=== PATIENT | male | born 1960 | race Hispanic/Latino ===

== ENCOUNTER 2016-07-21 08:22 | Day surgery (SDC) | payer OTHER ==
[~2016-07-21 08:22] MED LIST: MYDRIACYL 1% OD SCH; NACL 0.9% IR ONE; TETRACAINE 0.5% OD PRN; WATER FOR IRRIG STERILE IR ONE
[2016-07-21] MEDS ORDERED: MYDRIACYL 1% ONE (08:50)
[2016-07-21] MEDS: NON-FORMULARY OP SCH ×3 (09:45→09:55)
[2016-07-21] MEDS: VIGAMOX OD SCH ×3 (09:45→09:55)
[2016-07-21] MEDS: AK-Dilate OD SCH ×3 (09:45→09:55)
--- NOTE | 2016-07-21 09:55 | Anesthesia Consultation ---
Anesthesia Consult and Med Hx Date of service: 07/21/16 - Airway Anesthetic Teeth Evaluation: Good ROM Head & Neck: Adequate Mental/Hyoid Distance: Adequate Mallampati Class: Class II Intubation Access Assessment: Probably Good - Pulmonary Exam CTA: Yes - Cardiac Exam Cardiac Exam: RRR - Pre-Operative Health Status ASA Pre-Surgery Classification: ASA2 Proposed Anesthetic Plan: MAC - Pulmonary Hx Smoking: Yes - Central Nervous System Hx Psychiatric Problems: No - Other Systems Hx Alcohol Use: Yes (whiskey daily) Hx Cancer: No
--- NOTE | 2016-07-21 09:56 | Anesthesia Day of Surgery ---
Anesthesia Day of Surgery - Day of Surgery Patient Examined: Yes Patient H&P Reviewed: Yes Patient is NPO: Yes
[2016-07-21] MEDS ORDERED: VERSED ONE (10:39)
[2016-07-21] MEDS ORDERED: SUBLIMAZE ONE (10:39)
[2016-07-21] MEDS ORDERED: DIPRIVAN 10 MG/ML IV ONE ×3 (11:13→11:49)
[2016-07-21] MEDS ORDERED: MIOSTAT OD ONE (11:15)
[2016-07-21] MEDS ORDERED: VISION BLUE IO ONE (11:15)
[2016-07-21] MEDS ORDERED: KENALOG-40 INTRAOCULA ONE (11:15)
[2016-07-21] MEDS ORDERED: XYLOCAINE MPF 1% INFILTRATI ONE (11:15)
[2016-07-21] MEDS ORDERED: VISCOAT IO ONE (11:15)
[2016-07-21] MEDS ORDERED: XYLOCAINE MPF 2% ONE ×2 (11:16)
--- NOTE | 2016-07-21 12:52 | Operative Report ---
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 ANESTHESIA: Monitored anesthesia care in combination with topical and intracameral anesthesia because of the established specific risk of reflux, arrhythmias, or anxiety attacks associated with ocular manipulation, as well as the difficulty of the structural steel erector to manage such potentially catastrophic events while simultaneously attempting to complete the surgical procedure and was deemed necessary for the patient's safety to have a Nurse Fire Protection Fabricator present during the procedure whenever possible. An Fire Protection Fabricator was utilized to regulate the intravenous sedation of the patient so the patient was cooperative yet not asleep in order for the patient to successfully maintain fixation of the eye on the operating light of the microscope. COMPLICATIONS: none . No blood loss. ALLERGIES: No known drug allergies PROGNOSIS: guarded INDICATIONS FOR SURGERY: The patient is undergoing surgery in the hopes of eliminating or improving these visual difficulties. PROCEDURE: After arriving at the surgery center, the patient was given topical anesthetic and dilating drops, as noted in the record. The patient was then taken into the operating room and given more anesthetic drops. The eyelids , lashes, and lid margins were scrubbed with Betadine solution, and the patient was draped. The Fire Protection Fabricator administered IV sedation and monitored the patient during the procedure. A speculum was placed between the eyelids, and the patient was asked to fixate on the light of the microscope. The eye was then fixated with a round luque, which would damage the conjunctival tissues or vessel, and a stab incision was made in the peripheral clear cornea into the anterior chamber. This was made on my left side. Next through this incision, 1% nonpreserved Xylocaine was irrigated in to the eye to provide further anesthesia. Viscoelastic was next used to fill the anterior chamber. The eye was once again fixated with the round luque and a keratome was used make an incision in clear cornea peripherally on my right hand side temporally. When the viscoelastic was injected as noted above, instead of using one cohesive viscoelastic, a special viscoelastic system was used to fill the anterior chamber. The patient has endothelial corneal dystrophy, which is a weakening of the endothelium. Viscoat was first injected into the anterior chamber coating the posterior surface of the cornea. Provisc was then injected between the anterior capsule and the Viscoat. This pushed the Viscoat completely against the endothelium and into the angular area. The Provisc will come out as the phacoemulsification starts, but the Viscoat will remain in place during the procedure to protect the endothelium and the cornea. Due to a small pupil size, it was deemed necessary to dilate the pupil mechanically so that the surgery could be more safely and effectively carried out. This was done using Sinkey and Kruglin hooks. The pupil remain small and a Malugyan ring 6.25 was inserted. Because of the nature of the cataract and poor visualization of the anterior capsule, it was decided that a dye should be used to stain the capsule for better visualization of the capsule during the capsulorrhexis. After the Xylocaine was injected into the eye and prior to placing viscoelastic into the eye, air was injected through the stab incision and used to fill the anterior chamber. Then a cannula was inserted into the stab incision and VisionBlue dye was irrigated over the anterior capsule of the natural lens allowing the entire anterior lens capsule to be coated with the dye. The viscoelastic was next place in the eye as noted above and as this was done, the air was pushed out through the stab incision. The capsule remained colored from the dye and this allowed good visualization of the capsule tear as it progressed. Hydrodissection was carried out utilizing a U-shaped cannula and balanced salt solution to delineate the cortical material from the capsule and the nucleus from the cortical material. The phaco tip was introduced into the eye and used to remove the anterior cortical material in the area of the capsulotomy. Then the phaco tip was buried into the nucleus, and a chopping instrument was introduced into the eye and used to provide countertraction in the nucleus between this instrument and the phaco tip fracturing the nucleus. This procedure was repeated multiple times, providing multiple small segments of the lens, and then the phaco tip was used to remove each of these segments. Because of the cataract density we had to increase phaco setting to a grade 4. An I/A tip was then used to remove the remaining cortex. Capsular rent was noted and the bag appear slighly unstable so decided to place a sulcus lens. It was decided that instead of placing the lens in the capsular bag, the lens would be placed into the eye with the haptics anterior to the capsular bag and in the ciliary sulcus. Once it was determined that both haptics were properly positioned, the lens optic was pushed posteriorly to allow capture of the optic by the anterior capsulotomy. This capture provides better fixation and centration of the lens than placement in the sulcus alone. In order to provide constriction of the pupil and improved vision, Carbachol was injected into the anterior chamber to constrict the pupil. MEDICATIONS APPLIED AT END OF SURGERY: Kenolog was injected in the AC and subconj. The patient was given a shield to wear at night and was instructed not to rub or push on the eye. DISCHARGE SUMMARY: The patient was released in stable condition. The patient and those with the patient were given a written sheet of postoperative instructions and counseling on any abnormal laboratory studies. The patient is to see us tomorrow for follow-up in the office and is to call immediately for any difficulties. Jamilah Velazquez M.D. Date
--- NOTE | 2016-07-21 12:53 | Short Stay Summary ---
Short Stay Documentation Date of service: 07/21/16 - History H&P: obtained from office - Allergies and Medications Current Medications: Allergies Penicillins Allergy (Verified 07/19/16 08:33) Rash Home Medications Medication Instructions Recorded Confirmed Last Taken Type Difluprednate [Durezol 0.05%] 1 drop OS QID 07/19/16 07/19/16 Unknown History Nepafenac [Ilevro 0.3%] 1 drop OS DAILY 07/19/16 07/21/16 07/20/16 History Active Medications Miscellaneous Medication (Non-Formulary) 1 each OP Q5MIN DARRON Stop: 07/21/16 16:00 Last Admin: 07/21/16 09:55 Dose: 1 each Moxifloxacin HCl (Vigamox) 1 drops OD Q5MIN DARRON Stop: 07/21/16 18:01 Last Admin: 07/21/16 09:55 Dose: 1 drops Phenylephrine HCl (Ak-Dilate) 1 drops OD Q5MIN DARRON Stop: 07/21/16 18:01 Last Admin: 07/21/16 09:55 Dose: 1 drops Prednisolone Acetate (Pred Forte 1%) 1 drops OD QID DARRON Last Admin: 07/21/16 12:32 Dose: 1 drops Tetracaine HCl (Tetracaine 0.5%) 1 drops OD Q5M PRN PRN Reason: Analgesia Stop: 07/21/16 18:01 Last Admin: 07/21/16 09:45 Dose: 1 drops - Brief post op/procedure progress note Date of procedure: 07/21/16 Pre-op diagnosis: white uveitc cataract and post synechae right eye Post-op diagnosis: same Procedure: Phacoemulsification with intraocular lens insertion Kenalog injection right eye Anesthesia: MAC Surgeon: MICHAEL VICTORIA Estimated blood loss: none Pathology: none Condition: stable - Disposition Disposition: DISCHARGED TO HOME OR SELFCARE - Discharge Diagnoses (1) Uveitic cataract of right eye Status: Resolved (2) Posterior synechiae (iris), right eye Status: Resolved Short Stay Discharge Plan Additional Instructions: FOLLOW SURGEON INSTRUCTION SHEETS. Follow up with: PRIMARY CARE, [Primary Care Provider] - 7 Days Forms: Outpatient Surgery DC Inst.
[2016-07-21 13:15] VITALS: BP 160/89
--- NOTE | 2016-07-21 13:38 | Post Anesthesia Evaluation ---
- Post Anesthesia Evaluation Patient Participated: Yes Airway Patent: Yes Stable Respiratory Function: Yes Nausea/Vomiting: No Temp > 96.8F: Yes Pain Manageable: Yes Adequeate Hydration: Yes Anesthesia Complications: No Block Receding Appropriately: Not Applicable Patient on Ventilator: No
[2016-07-21] MEDS ORDERED: PRED FORTE 1% OD SCH (14:00)
== END 2016-07-21 13:10 | disposition home or self-care (01) ==
LOC: OR 08:22
DX: H26.8 Other specified cataract (principal); H21.541 Posterior synechiae (iris), right eye; H18.51 Endothelial corneal dystrophy; H57.8 Other specified disorders of eye and adnexa; F17.210 Nicotine dependence, cigarettes, uncomplicated; Z72.89 Other problems related to lifestyle
CPT/HCPCS: 66982; J2250; J2704; J3010; J3301; V2632

== ENCOUNTER 2017-09-07 09:10 | Day surgery (SDC) | payer OTHER ==
[~2017-09-07 09:10] MED LIST changes: +KENALOG-40 ONE; -MYDRIACYL 1% OD SCH; -NACL 0.9% IR ONE; -TETRACAINE 0.5% OD PRN; -WATER FOR IRRIG STERILE IR ONE; +XYLOCAINE MPF 1% INFILTRATI ONE
[2017-09-07] MEDS ORDERED: TETRACAINE 0.5% OS SCH (12:15)
[2017-09-07] MEDS: AK-Dilate OS SCH ×3 (12:23→12:45)
[2017-09-07] MEDS: VIGAMOX OS SCH ×3 (12:24→12:44)
[2017-09-07] MEDS: MYDRIACYL OS SCH ×5 (12:25→12:47)
[2017-09-07] MEDS ORDERED: NARCAN 0.4 MG/1 ML IV PRN (12:31)
[2017-09-07] MEDS ORDERED: DILAUDID IV PRN (12:31)
[2017-09-07] MEDS ORDERED: ZOFRAN IV PRN (12:31)
--- NOTE | 2017-09-07 12:33 | Anesthesia Consultation ---
Anesthesia Consult and Med Hx Date of service: 09/07/17 - Airway Anesthetic Teeth Evaluation: Poor ROM Head & Neck: Adequate Mental/Hyoid Distance: Adequate Mallampati Class: Class IV Intubation Access Assessment: Possibly Difficult - Pulmonary Exam CTA: Yes - Cardiac Exam Cardiac Exam: RRR - Pre-Operative Health Status ASA Pre-Surgery Classification: ASA3 Proposed Anesthetic Plan: MAC - Pulmonary Hx Smoking: Yes - Central Nervous System Hx Psychiatric Problems: No - Other Systems Hx Alcohol Use: Yes (whiskey daily) Hx Cancer: No
--- NOTE | 2017-09-07 12:33 | Anesthesia Day of Surgery ---
Anesthesia Day of Surgery - Day of Surgery Patient Examined: Yes Patient H&P Reviewed: Yes Patient is NPO: Yes
[2017-09-07] MEDS ORDERED: VERSED IV NR (13:00)
[2017-09-07] MEDS ORDERED: WATER FOR IRRIG STERILE IR ONE (13:15)
[2017-09-07] MEDS ORDERED: XYLOCAINE 1% MPF 5 mL INTRAOCULA ONE (13:15)
[2017-09-07] MEDS ORDERED: KENALOG-40 INTRAOCULA ONE (13:15)
[2017-09-07] MEDS ORDERED: SUBLIMAZE ONE (13:22)
[2017-09-07] MEDS ORDERED: DIAMOX PO ONE (13:59)
[2017-09-07] MEDS ORDERED: PRED FORTE 1% OS SCH (14:00)
--- NOTE | 2017-09-07 14:03 | Operative Report ---
Operative Report Operative Report: PATIENT'S NAME: DATE OF : DATE OF SURGERY: 09/07/2017 PREOPERATIVE DIAGNOSIS: Cataract and posterior synechiae left eye POSTOPERATIVE DIAGNOSIS: Same OPERATIVE PROCEDURE: Phacoemulsification with intraocular lens implantation, and syneciolysis left eye SURGEON: Jamilah Velazquez M.D. FLOOR LAYER TILE SURGEON: None Lens: ao60 21.5 D ANESTHESIA: Monitored anesthesia care in combination with topical and intracameral anesthesia because of the established specific risk of reflux, arrhythmias, or anxiety attacks associated with ocular manipulation, as well as the difficulty of the tax consultant to manage such potentially catastrophic events while simultaneously attempting to complete the surgical procedure and was deemed necessary for the patient's safety to have an Sales Operations Director present during the procedure whenever possible. An Sales Operations Director was utilized to regulate the intravenous sedation of the patient so the patient was cooperative yet not asleep in order for the patient to successfully maintain fixation of the eye on the operating light of the microscope. COMPLICATIONS: none No blood loss. ALLERGIES: Penicillin PROGNOSIS: Excellent INDICATIONS FOR SURGERY: The patient is undergoing surgery in the hopes of eliminating or improving these visual difficulties. PROCEDURE: After arriving at the surgery center, the patient was given topical anesthetic and dilating drops, as noted in the record. The patient was then taken into the operating room and given more anesthetic drops. The eyelids , lashes, and lid margins were scrubbed with Betadine solution, and the patient was draped. The Nurse Sales Operations Director administered IV sedation and monitored the patient during the procedure. The eye was then fixated with a 0.12, and a stab incision was made in the peripheral clear cornea into the anterior chamber. This was made on my left side. Viscoelastic was next used to fill the anterior chamber. The eye was once again fixated with the 0.12 forceps and a keratome was used make an incision in clear cornea peripherally on my right hand side temporally. The pupil was scarred down to 360 and a combination of her Chazgan hook and Sinteresitaey hook were used to break the synechia. The capsule forceps were used to open the central anterior capsule and then make a continuous round capsulotomy. Hydrodissection was carried out utilizing a cannula and balanced salt solution to delineate the cortical material from the capsule and the nucleus from the cortical material. The phaco tip was introduced into the eye and used to remove the anterior cortical material in the area of the capsulotomy. Then the phaco tip was buried into the nucleus, and a chopping instrument was introduced into the eye and used to provide countertraction in the nucleus between this instrument and the phaco tip fracturing the nucleus. This procedure was repeated multiple times, providing multiple small segments of the lens, and then the phaco tip was used to remove each of these segments. An I/A tip was then used to remove the remaining cortex. The anterior chamber was refilled with viscoelastic. An one-piece, acrylic intraocular lens was then placed into an inserting cartridge. The tip of the inserting cartridge was introduced into the keratome incision and into the anterior chamber. The implant was gently advanced through the cartridge and into the eye, where it unfolded, and both haptics were placed in the capsular bag, where it centered nicely and appeared to be well fixated. After placement of the intraocular lens, the I~and~A handpiece was placed back into the eye and used to remove the viscoelastic, including viscoelastic that was behind the optic of the intraocular lens. The anterior chamber was then filled with balanced salt solution, and hydration of the wound was used to cause swelling of the wound and more appropriate watertight closure. This was followed by injection of Kenalog. Kenalog was also injected some contrast inferiorly. MEDICATIONS APPLIED AT END OF SURGERY: One drop of Pred Forte and Vigamox The patient was given a shield to wear at night and was instructed not to rub or push on the eye. DISCHARGE SUMMARY: The patient was released in stable condition. The patient and those with the patient were given a written sheet of postoperative instructions and counseling on any abnormal laboratory studies. The patient is to see us tomorrow for follow-up in the office and is to call immediately for any difficulties. Jamilah Velazquez M.D. Date
--- NOTE | 2017-09-07 14:06 | Short Stay Summary ---
Short Stay Documentation Date of service: 09/07/17 - History H&P: obtained from office - Allergies and Medications Current Medications: Allergies Penicillins Allergy (Verified 07/19/16 08:33) Rash Home Medications Medication Instructions Recorded Confirmed Last Taken Type Difluprednate [Durezol 0.05%] 1 drop OS QID 07/19/16 09/07/17 09/06/17 History Nepafenac [Ilevro 0.3%] 1 drop OS DAILY 07/19/16 09/07/17 09/06/17 History Active Medications Acetazolamide (Diamox) 500 mg PO ONCE ONE Stop: 09/07/17 14:00 Hydromorphone HCl (Dilaudid) 0.25 mg IV Q10MIN PRN PRN Reason: Pain, Moderate (4-6) Stop: 09/07/17 23:59 Midazolam HCl (Versed) 2 mg IV PREOP NR Stop: 09/07/17 23:59 Last Admin: 09/07/17 12:39 Dose: 2 mg Moxifloxacin HCl (Vigamox) 1 drops OS Q5MIN [facility] Stop: 09/09/17 12:09 Last Admin: 09/07/17 12:44 Dose: 1 drops Naloxone HCl (Narcan 0.4 Mg/1 Ml) 0.1 mg IV Q2MIN PRN PRN Reason: Res Rate </= 8 or 02 SAT < 92% Stop: 09/07/17 23:59 Ondansetron HCl (Zofran) 4 mg IV ONCE PRN PRN Reason: Nausea And Vomiting Phenylephrine HCl (Ak-Dilate) 1 drops OS Q5MIN [facility] Stop: 09/09/17 12:09 Last Admin: 09/07/17 12:45 Dose: 1 drops Prednisolone Acetate (Pred Forte 1%) 1 drops OS QID [facility] Tetracaine HCl (Tetracaine 0.5%) 1 drops OS Q5M [facility] Stop: 09/07/17 15:00 Last Admin: 09/07/17 12:21 Dose: 1 drops Tropicamide (Mydriacyl) 1 drops OS Q5MIN [facility] Stop: 09/07/17 23:59 Last Admin: 09/07/17 12:47 Dose: 1 drops - Brief post op/procedure progress note Date of procedure: 09/07/17 Pre-op diagnosis: U uveitic cataract synechiae left eye Post-op diagnosis: same Procedure: Phacoemulsification with intraocular lens insertion left eye, synechiolysis left eye Anesthesia: MAC, local Surgeon: MICHAEL VICTORIA Estimated blood loss: none Pathology: none Specimen disposition: to lab Condition: stable - Disposition Condition at discharge: Good Disposition: DC-01 TO HOME OR SELFCARE - Discharge Diagnoses (1) Uveitic cataract of left eye Status: Resolved (2) Posterior synechiae of left eye Status: Resolved Short Stay Discharge Plan Follow up with: LOREN ETIENNE MD [Primary Care Provider] - 7 Days
--- NOTE | 2017-09-07 15:36 | Post Anesthesia Evaluation ---
- Post Anesthesia Evaluation Patient Participated: Yes Airway Patent: Yes Stable Respiratory Function: Yes Nausea/Vomiting: No Temp > 96.8F: Yes Pain Manageable: Yes Adequeate Hydration: Yes Anesthesia Complications: No
[2017-09-07 19:46] VITALS: BP 147/83
== END 2017-09-07 15:05 | disposition home or self-care (01) ==
LOC: OR 09:10
DX: H26.9 Unspecified cataract (principal); H21.542 Posterior synechiae (iris), left eye; F17.200 Nicotine dependence, unspecified, uncomplicated; I10 Essential (primary) hypertension; Z88.0 Allergy status to penicillin
CPT/HCPCS: 66984; J2250; J3010; J3301; V2632